=== PATIENT | male | born 1995 | race Two or more races ===

== ENCOUNTER 2020-08-05 08:36 | Emergency (ER) | payer OTHER ==
[~2020-08-05] VITALS: Ht 177.8 cm; Wt 82.1 kg
--- NOTE | 2020-08-05 09:13 | NUR ---
pt c/o irregular heart beat for 2 weeks worse over last 3 days with intermittent dizziness. pt reports he feels fine now. pt denies being worked up in the past for palpitations.
[2020-08-05] MEDS ORDERED: LORazepam 1MG TABLET PO ONE (09:30)
[2020-08-05] MEDS ORDERED: SODIUM CHLORIDE FLUSH 10ML SYR IVF ONE (09:30)
[2020-08-05 09:35] LABS: BASOPHILS % (AUTO) 0 % (0-1); EOSINOPHILS % (AUTO) 0 % (1-7); LYMPHOCYTES % (AUTO) 22 % (22-44); MEAN CORPUSCULAR HEMOGLOBIN 30.1 pg (27.5-34.5); MEAN CORPUSCULAR HGB CONC 34.4 g/dL (33.2-36.2); MEAN PLATELET VOLUME 9.7 fL (7.4-10.4); MONOCYTES % (AUTO) 7 % (2-9); NEUTROPHILS % (AUTO) 71 % (42-75); PLATELET COUNT 185 x10^3/uL (130-400); RED CELL DISTRIBUTION WIDTH 13.3 % (9.4-14.8)
[2020-08-05 09:42] LABS: ALBUMIN 4.3 g/dL (3.4-5.0); ANION GAP 5 mmol/L (5-15); CALCIUM 9.1 mg/dL (8.5-10.1); CHLORIDE 108 mmol/L (98-107)
[2020-08-05 09:46] LABS: MD NO
[2020-08-05 09:48] LABS: TROPONIN I < 0.015 ng/mL (0.000-0.045)
--- NOTE | 2020-08-05 10:16 | NUR ---
CHART UP FOR MD RECHECK.
[2020-08-05 10:49] VITALS: BP 135/85
== END 2020-08-05 10:51 | disposition home or self-care (01) ==
LOC: ED 09:49
DX: R07.89 Other chest pain (principal); F41.1 Generalized anxiety disorder; I51.7 Cardiomegaly; R00.2 Palpitations; R42 Dizziness and giddiness
CPT/HCPCS: 36415; 71045; 80048; 82040; 83880; 84484; 85025; 93005; 99285